=== PATIENT | male | born 2000 | race Caucasian/White ===

== ENCOUNTER 2025-04-30 13:16 | Emergency (ER) | payer OTHER, SELFPAY ==
[2025-04-30 13:18] VITALS: BP 144/98; PULSE 102; RESP 16; TEMP 36.4; O2SAT 99; BMI 20.8
--- NOTE | 2025-04-30 13:28 | RAD_ITS ---
PROCEDURE: CHEST PA AND LATERAL 04/30/2025 REASON FOR EXAM: CHEST PAIN TECHNIQUE: Procedure Code: RADCXR Modality: DX Procedure: CHEST PA AND LATERAL COMPARISON: None FINDINGS: Hardware: None Heart: The heart size is normal. Mediastinum: The mediastinal contour is unremarkable. Lungs: The lungs are clear. Bones: The bones are unremarkable. RAD/Chest PA and Lateral IMPRESSION: NO ACUTE FINDINGS. Reading Location: [place] [id number]
--- NOTE | 2025-04-30 13:28 | EKG12_ITS ---
Test Reason : PALP Blood Pressure : */* mmHG Vent. Rate : 102 BPM Atrial Rate : 102 BPM P-R Int : 126 ms QRS Dur : 120 ms QT Int : 348 ms P-R-T Axes : 77 78 67 degrees QTcB Int : 453 ms Sinus tachycardia Right atrial enlargement RSR' or QR pattern in V1 suggests right ventricular conduction delay Nonspecific T wave abnormality Abnormal ECG Confirmed by ELIDA BORJA, ORLANDO ([id number]), supervising editor news reel KATHRINE IRIZARRY ([id number]) on 05/03/2025 9:08:58 AM Referred By: ES/TB Confirmed By: ORLANDO MARRERO MD
[2025-04-30 13:45] LABS: Hematocrit 47.7 % (40-54); Hemoglobin 16.4 g/dL (13.0-16.5); Immature Granulocytes Count 0.010 X10^3/uL (0.0-0.0); Mean Corp Hgb Conc 34.4 g/dL (32-36); Mean Corpuscular Volume 82.2 fL (80-94); Mean Platelet Vol. 9.4 fl (6.2-12.0); NRBC Flagged by Analyzer 0 % (0-5); Platelet Count 243 K/mm3 (150-450); RBC Distribution Width CV 12.2 % (11.6-14.6); RBC Distribution Width SD 36.9 fl (35.1-43.9); Red Blood Count 5.80 M/mm3 (4.6-6.2); White Blood Count 5.5 K/mm3 (4.4-11.0)
--- NOTE | 2025-04-30 13:53 | ED.VIS.CHEST ---
HPI History of Present Illness Chief Complaint: Palpitations Narrative Narrative: Patient is a 25-year-old male with no known significant past medical history who presented to the emergency department the chief complaint of palpitations. He states that for the past few days he has noted that it feels like his heart is racing in his chest. He states that this has happened before around [place] last year however notes that this went away after 2 days. Patient notes that he is here for work and notes that he has been here for approximately a month now he is originally from [place]. Patient denies any other recent travel history. Patient denies any history of blood clots. Patient denies any history of IV drug use, tobacco use and denies alcohol use as well. Patient denies caffeine use. PFSH PFSH Home Medications ?Medication ?Instructions ?Recorded ?Last Taken ?Type NK 04/30/25 Unknown History Allergy/AdvReac Type Severity Reaction Status Date / Time Penicillins (PCN) Allergy Severe Hives Verified 04/30/25 13:20 Social History Smoking Status: Never smoker ROS ROS ED ROS Narrative Constitutional: Denies fevers, chills Cardiovascular: Complains of palpitations as noted above denies chest pain Respiratory: Complains of shortness of breath denies coughing wheezing Abdomen: Denies abdominal pain nausea vomit diarrhea : Denies urinary symptoms Neurological: Denies numbness, weakness, tingling Musculoskeletal: Denies back pain Skin: Denies any rashes or lesions EXAM Physical Exam Narrative Exam Narrative: General: Patient lying in bed rest comfortably did not appear to be acute distress Head: Atraumatic, normocephalic Eyes: PERRL bilaterally, EOMI bilaterally, no conjunctival injection noted Neck: Soft, supple, trachea midline Cardiovascular: Patient tachycardic with a regular rhythm Respiratory: Clear to auscultation bilaterally no rales rhonchi or wheezes noted Abdomen: Soft, nondistended, no tenderness to palpation Extremities: +5/5 strength noted in the bilateral upper and lower extremities, radial pulses +2/4 in the bilateral extremities Neurological: Patient follow commands that he was at [facility] year is 2024 Skin: Warm, dry, intact no rashes or lesions noted Const Vital Signs: 04/30/25 13:18 04/30/25 13:28 04/30/25 14:35 Temperature 97.5 F L Temperature Source Temporal Pulse Rate 102 H 90 Respiratory Rate 16 14 Blood Pressure 144/98 H 139/82 H Blood Pressure Mean 113 101 Pulse Ox 99 100 Oxygen Delivery Method Room Air Room Air Room Air MDM MDM MDM Narrative Medical decision making narrative: Patient is a 24-year-old male who presents to the emergency department chief complaint of palpitations. On the differential diagnosis includes but limited to PVCs, SVT, other cardiac arrhythmia, electrolyte abnormality, anxiety, hyperthyroidism,. Once workup is obtained reviewed he will be reevaluated. Patient CBC reviewed showed no evidence leukocytosis white blood count normal at 5.5, hemosixteen 0.4, plate count normal at 343. Patient D-dimer normal at 0.27. Patient sodium normal 137, potassium low at 3.9, creatinine 1.13. Patient troponin was 7 EKG reviewed showed sinus tachycardia with a rate of 102 bpm with evidence of right atrial enlargement with nonspecific ST changes noted.. Patient TSH normal at 1.10 free T4 at 1.50 and T3 normal at 3.6. Patient chest x-ray himself by radiology showed no acute cardiopulmonary processes. Discussed results with the patient he would like to go home at this point time. He is advised when he returns to [place] in a few days he needs to contact his doctor for a Holter monitor. He was vies while he is here in [place] he should return here with worsening symptoms or any concerns. He is agreeable to plan all question concerns answered he is discharged home in stable condition. Patient was educated on dealing with anxiety and different techniques to do so. Lab Data Labs: Laboratory Results - last 24 hr 04/30/25 13:30 WBC 5.5 RBC 5.80 Hgb 16.4 Hct 47.7 MCV 82.2 MCH 28.3 MCHC 34.4 RDW Std Deviation 36.9 RDW Coeff of Jennifer 12.2 Plt Count 243 MPV 9.4 Immature Gran % (Auto) 0.200 Neut % (Auto) 55.4 Lymph % (Auto) 35.6 Merrick % (Auto) 5.3 Eos % (Auto) 2.6 Baso % (Auto) 0.9 Absolute Neuts (auto) 3.0 Absolute Lymphs (auto) 1.94 Nucleated RBC % 0 D-Dimer Quant (PE/DVT) 0.27 Sodium 137 Potassium 3.9 Chloride 100 Carbon Dioxide 23.1 Anion Gap 14 BUN 15 Creatinine 1.13 Estim Creat Clear Calc 103.94 Est GFR (MDRD) Non-Af 94 BUN/Creatinine Ratio 13.4 Glucose 127 H Calcium 9.9 Troponin T High Sens 7 TSH 1.100 Free T4 1.50 H Free T3 pg/dL 3.6 Radiography Diagnostic Testing: Clinical Impression(s) from Imaging Studies Chest X-Ray 04/30/25 13:28 IMPRESSION: NO ACUTE FINDINGS. Reading Location: [facility] Discharge Plan Triage Chief Complaint: Palpitations ED Provider: Petey Laboy Dx/Rx/DC Orders Clinical Impression: Anxiety, Palpitations Prescriptions: No Action NK Primary Care Provider: Care Physician,No Primary Referrals: [facility] Doctor,Out of [Non-Staff] - Activity Restrictions/Additional Instructions: Follow-up with your doctor in the outpatient setting when you return back to [place]. Contact them for a Holter monitor as we discussed here. Return with worsening symptoms or other concerns. Your blood work today was normal did not show any acute findings your chest x-ray was normal. Print Language: Guamanian Disposition Disposition: Home, Self Care
[2025-04-30 14:28] LABS: Anion Gap 14 (5-15); BUN 15 mg/dL (4-19); BUN/Creat Ratio 13.4 RATIO (10-20); Calcium,Total 9.9 mg/dL (7.6-11.0); Carbon Dioxide 23.1 mmol/L (21.0-32.0); Chloride 100 mmol/L (98-108); Estimated Creatinine Clearance 103.94 ml/min (50-250); Free T3 3.6 pg/mL (2.18-3.98); Glucose 127 mg/dL (70-99); Potassium 3.9 mmol/L (3.3-5.1); Troponin T High Sensitivity 7 ng/L (<=22)
[2025-04-30] MEDS: 0.9% Normal Saline (1000mL) 1,000 ML 999 ML IV (14:34)
[2025-04-30 14:35] VITALS: BP 139/82; PULSE 90; RESP 14; O2SAT 100
[2025-04-30 15:15] LABS: D-Dimer Quantitative (DVT/PE) 0.27 FEU/ug/m (0.27-0.49)
[2025-04-30 15:26] VITALS: BP 131/86; PULSE 89; RESP 16; TEMP 36.6; O2SAT 99
== END 2025-04-30 15:31 | disposition home or self-care (01) ==
PROVIDERS: Emergency Provider Emergency Medicine; Visit Provider Emergency Medicine
DX: F41.9 Anxiety disorder, unspecified (principal); R00.2 Palpitations
CPT/HCPCS: 71046; 80048; 84439; 84443; 84481; 84484; 85025; 85379; 93005; 96360; 99284